=== PATIENT | female | born 1970 | race Caucasian/White ===

== ENCOUNTER 2021-04-02 15:23 | Observation (INO) ==
[2021-04-02] MEDS ORDERED: 0.9 % Sodium Chloride 1,000 ML IV ONE (16:16)
[2021-04-02 16:30] LABS: Eosinophils # 0.1 K/mcL (0.0-0.6); Hemoglobin 10.2 g/dL (11.5-15.4); Mean Corpuscular HGB Conc 32.9 g/dL (31.6-35.5); Mean Corpuscular Hemoglobin 30.3 pg (28.0-33.3); Mean Platelet Volume 9.6 fL (9.4-12.4); Monocytes # 0.1 K/mcL (0.0-1.3); Platelet Count 169 K/mcL (140-400); Red Blood Count 3.37 M/mcL (3.82-4.97); Red Cell Distribution Width 14.9 % (11.5-14.5); White Blood Count 9.7 K/mcL (4.3-11.1)
[2021-04-02 16:41] LABS: INR 1.1; Prothrombin Time 12.9 Seconds (9.4-12.1)
[2021-04-02 16:52] LABS: Alanine Aminotransferase 59 Units/L (7-52); Albumin 3.9 g/dL (3.5-5.7); Albumin/Globulin Ratio 1.6 (1.1-2.2); Alkaline Phosphatase 67 Units/L (34-104); Aspartate Amino Transferase 32 Units/L (13-39); BUN/Creatinine Ratio 33 (6-26); Bilirubin,Direct 0.2 mg/dL (0.0-0.2); Bilirubin,Indirect 1.4 mg/dL (0.0-1.0); Bilirubin,Total 1.6 mg/dL (0.3-1.0); Blood Urea Nitrogen 15 mg/dL (6-20); Calcium 8.8 mg/dL (8.6-10.3); Carbon Dioxide 28 mEq/L (23-29); Chloride 101 mEq/L (98-107); Globulin 2.4 g/dL (2.4-3.5); Glucose 92 mg/dL (70-105); Lipase 14 Units/L (11-82); Osmolality,Calculated 282 (280-300); Potassium 3.4 mEq/L (3.5-5.1); Sodium 136 mEq/L (136-145); Total Protein 6.3 g/dL (6.4-8.9); Troponin I < 0.03 ng/mL (< 0.04); eGFR For African Americans > 60 (> 60); eGFR For Non-African Americans > 60 (> 60)
[2021-04-02 16:56] LABS: Lymphocytes # 0.3 K/mcL (0.6-4.6); Neutrophils # 9.1 K/mcL (1.6-8.9)
[2021-04-02 17:06] LABS: Platelet Estimate Normal (Normal)
[2021-04-02 17:54] LABS: Bilirubin,Urine Negative (Negative); Blood,Urine Negative (Negative); Clarity,Urine Clear (Clear); Color,Urine Colorless (Yellow); Glucose,Urine (UA) Normal (Normal); Ketones,Urine Negative (Negative); Leukocyte Esterase,Urine Negative (Negative); Nitrite,Urine Negative (Negative); Protein,Urine Negative (Neg-Trace); Specific Gravity,Urine 1.011 (1.010-1.025); Urobilinogen,Urine Normal (Normal)
[2021-04-02] MEDS ORDERED: Acetaminophen 325 MG TABLET PO ONE (18:24)
[2021-04-02] MEDS ORDERED: cefTRIAXone 1,000 MG in 0.9 % Sodium Chloride Mini Bag 100 ML IVPB ONE (18:28)
[2021-04-02] MEDS ORDERED: *HR* OxyCODONE/APAP 5/325 TABLET PO ONE (20:06)
[2021-04-02] MEDS ORDERED: Ondansetron 4 MG/2 ML VIAL IVP PRN (20:23)
[2021-04-02] MEDS ORDERED: Naloxone 0.4 MG/ML INJ IVP PRN (20:23)
[2021-04-02 21:35] LABS: Adenovirus Not Detected (Not Detect); Bordetella Pertussis Not Detected (Not Detect); Chlamydophila pneumoniae Not Detected (Not Detect); Coronavirus 229E Not Detected (Not Detect); Coronavirus HKU1 Not Detected (Not Detect); Coronavirus NL63 Not Detected (Not Detect); Coronavirus OC43 Not Detected (Not Detect); Human Metapneumovirus Not Detected (Not Detect); Human Rhinovirus/Enterovirus Not Detected (Not Detect); Influenza A Subtype 2009 H1 Not Detected (Not Detect); Influenza B Not Detected (Not Detect); Mycoplasma pneumoniae Not Detected (Not Detect); Parainfluenza Virus 1 Not Detected (Not Detect); Parainfluenza Virus 2 Not Detected (Not Detect); Parainfluenza Virus 3 Not Detected (Not Detect); Parainfluenza Virus 4 Not Detected (Not Detect); Respiratory Syncytial Virus Not Detected (Not Detect); SARS-CoV-2 Not Detected (Not Detect)
[2021-04-03] MEDS: Piperacillin/Tazobactam 3.375 GM in 0.9 % Sodium Chloride Mini Bag 100 ML IVPB SCH ×4 (00:27→23:39)
[2021-04-03] MEDS: 0.9 % Sodium Chloride 1,000 ML IVC SCH ×2 (00:27→14:54)
[2021-04-03 02:55] LABS: Hematocrit 28.1 % (35.3-44.9); Hemoglobin 9.1 g/dL (11.5-15.4); Mean Corpuscular HGB Conc 32.4 g/dL (31.6-35.5); Mean Corpuscular Hemoglobin 29.8 pg (28.0-33.3); Mean Corpuscular Volume 92.1 fL (83.0-100.0); Mean Platelet Volume 9.3 fL (9.4-12.4); Platelet Count 162 K/mcL (140-400); Red Blood Count 3.05 M/mcL (3.82-4.97); Red Cell Distribution Width 15.1 % (11.5-14.5); White Blood Count 6.4 K/mcL (4.3-11.1)
[2021-04-03 03:13] LABS: Lymphocytes # 0.6 K/mcL (0.6-4.6); Neutrophils # 5.8 K/mcL (1.6-8.9); Platelet Estimate Normal (Normal)
[2021-04-03 03:14] LABS: BUN/Creatinine Ratio 26 (6-26); Blood Urea Nitrogen 13 mg/dL (6-20); Calcium 8.4 mg/dL (8.6-10.3); Carbon Dioxide 30 mEq/L (23-29); Chloride 101 mEq/L (98-107); Glucose 113 mg/dL (70-105); Osmolality,Calculated 285 (280-300); Potassium 3.2 mEq/L (3.5-5.1); Sodium 137 mEq/L (136-145); eGFR For African Americans > 60 (> 60); eGFR For Non-African Americans > 60 (> 60)
[2021-04-03] MEDS: *HR* Heparin 5,000 UNIT/ML VIAL SQ SCH ×3 (04:04→21:10)
[2021-04-03] MEDS: Acetaminophen 325 MG TABLET PO PRN ×2 (08:03→23:39)
[2021-04-03] MEDS: Vancomycin 1,250 MG/262.5 ML IV.SOLN IVPB SCH ×2 (12:52→21:11)
[2021-04-03] MEDS: Nystatin POWDER 30 GM BOTTLE TP SCH ×3 (12:52→21:10)
[2021-04-03] MEDS ORDERED: ALPRAZolam 0.5 MG TABLET PO PRN (18:16)
[2021-04-03] MEDS: Loratadine 10 MG TABLET PO SCH (21:10)
[2021-04-04] MEDS: *HR* Heparin 5,000 UNIT/ML VIAL SQ SCH ×2 (05:39→13:37)
[2021-04-04 07:20] VITALS: BP 114/73
[2021-04-04] MEDS: Loratadine 10 MG TABLET PO SCH (08:54)
[2021-04-04] MEDS: Piperacillin/Tazobactam 3.375 GM in 0.9 % Sodium Chloride Mini Bag 100 ML IVPB SCH (08:54)
[2021-04-04] MEDS ORDERED: Ketoconazole 2% CRM 15 GM TUBE TP SCH (09:00)
[2021-04-04] MEDS ORDERED: Famotidine 20 MG TABLET PO SCH (09:00)
[2021-04-04] MEDS: Nystatin POWDER 30 GM BOTTLE TP SCH ×2 (09:00→13:39)
[2021-04-04] MEDS ORDERED: Vancomycin 1,500 MG/265 ML IV.SOLN IVPB SCH (11:00)
[2021-04-04] MEDS: Vancomycin 1,250 MG/262.5 ML IV.SOLN IVPB SCH (11:06)
== END 2021-04-04 15:14 | disposition home or self-care (01) ==
LOC: EMEROOARM 15:23 → 3ANU 15:23 → SUATTDRO 21:08 → 3ANU 21:59
PROVIDERS: ADMIT Student in an Organized Health Care Education/Training Program; ATTEND Student in an Organized Health Care Education/Training Program